=== PATIENT | female | born 1955 | race Two or more races ===

== ENCOUNTER 2021-12-26 15:54 | Outpatient (CLI) | payer OTHER | END 2021-12-26 15:58 | disposition home or self-care (01) | LOC: RAD 15:54 | DX: M54.2 Cervicalgia (principal); M54.50 Low back pain, unspecified ==

== ENCOUNTER 2024-06-05 10:47 | Emergency (ER) | payer OTHER ==
[~2024-06-05] VITALS: Ht 152.4 cm; Wt 68.0 kg
[2024-06-05] MEDS ORDERED: ATORVASTATIN CA10 MG (10:51)
[2024-06-05] MEDS ORDERED: CANDESARTAN CILE8 MG (10:51)
[2024-06-05] MEDS ORDERED: SYNJARDY 12.5-1 EACH (10:51)
== END 2024-06-05 14:33 | disposition home or self-care (01) ==
LOC: ER 10:48
DX: S09.8XXA Other specified injuries of head, initial encounter (principal); W19.XXXA Unspecified fall, initial encounter; Y93.89 Activity, other specified; Y92.89 Other specified places as the place of occurrence of the external cause; Y99.8 Other external cause status; I10 Essential (primary) hypertension; E11.9 Type 2 diabetes mellitus without complications; Z79.84 Long term (current) use of oral hypoglycemic drugs; Z88.0 Allergy status to penicillin; Z88.6 Allergy status to analgesic agent

== ENCOUNTER 2024-07-21 12:08 | Outpatient (CLI) | payer OTHER ==
[~2024-07-21 12:08] MED LIST: ATORVASTATIN CA10 MG; CANDESARTAN CILE8 MG; SYNJARDY 12.5-1 EACH
== END 2024-07-21 12:16 | disposition home or self-care (01) ==
LOC: RAD 12:08
PROVIDERS: ATTEND Family Medicine
DX: M25.551 Pain in right hip (principal)